=== PATIENT | female | born 1955 | race African-American/Black ===

== ENCOUNTER 2023-03-11 17:07 | Inpatient (IN) | payer OTHER, SELFPAY ==
[~2023-03-11] VITALS: Ht 162.6 cm; Wt 77.3 kg
[2023-03-11] MEDS ORDERED: FUROSEMIDE 40MG/4ML VIAL IV ONE (17:45)
[2023-03-11] MEDS ORDERED: APIXABAN 5 MG TAB (ELIQUIS) PO ONE (17:45)
[2023-03-11] MEDS ORDERED: METOPROLOL TART 50 MG TAB PO ONE (17:45)
[2023-03-11 18:04] LABS: BASO % 0.5 % (0.0-1.0); EOS # 0.1 10^3/uL (0.0-0.5); EOS % 1.3 % (0.0-3.0); HEMATOCRIT 34.9 % (36.0-47.0); HEMOGLOBIN 10.8 g/dl (12.0-15.5); LYMPH # 1.8 10^3/uL (1.5-5.0); MEAN CORPUSCULAR HEMOGLOBIN 26.5 pg (27.0-33.0); MEAN CORPUSCULAR HGB CONC 30.9 g/dl (32.0-36.5); MEAN CORPUSCULAR VOLUME 85.7 fl (80.0-96.0); MONO # 0.6 10^3/uL (0.0-0.8); MONO % 7.1 % (2.0-8.0); NEUTROPHILS # 5.3 10^3/uL (1.5-8.5); NEUTROPHILS % 67.7 % (36.0-66.0); PLATELET COUNT, AUTOMATED 166 10^3/uL (150-450); RED BLOOD COUNT 4.07 10^6/uL (4.00-5.40); WHITE BLOOD COUNT 7.8 10^3/uL (4.0-10.0)
[2023-03-11 18:27] LABS: BLOOD UREA NITROGEN 10 MG/DL (9-23); CALCIUM LEVEL 8.6 MG/DL (8.3-10.6); CARBON DIOXIDE LEVEL 25 MMOL/L (20-31); CHLORIDE LEVEL 107 MMOL/L (98-107); CREATININE FOR GFR 0.66 MG/DL (0.55-1.30); GLOMERULAR FILTRATION RATE > 60.0 (>45); GLUCOSE, FASTING 243 MG/DL (74-106); POTASSIUM SERUM 3.9 MMOL/L (3.5-5.1); SODIUM LEVEL 141 MMOL/L (136-145)
[2023-03-11] MEDS ORDERED: MED REC IN PROGRESS XX SCH (19:40)
[2023-03-11] MEDS ORDERED: gliclazide PO (20:03)
[2023-03-11] MEDS ORDERED: ENAL1TAB48 PO (20:03)
[2023-03-11] MEDS ORDERED: PRAD75CA5 PO (20:03)
[2023-03-11] MEDS ORDERED: FURO40TA2 PO (20:03)
[2023-03-11] MEDS ORDERED: DIGO0.123 PO (20:03)
[2023-03-11] MEDS ORDERED: CARV12.5 PO (20:03)
[2023-03-11] MEDS ORDERED: med rec comment (20:04)
[2023-03-11] MEDS ORDERED: MOM 30ML SUSPENSION UDC PO PRN (20:05)
[2023-03-11] MEDS ORDERED: GLUCAGON INJ 1MG VIAL SC PRN (20:05)
[2023-03-11] MEDS ORDERED: MAALOX 30 ML SUSP *UDC PO PRN (20:05)
[2023-03-11] MEDS ORDERED: DEXTROSE 50% 50ML SYRINGE IV PRN (20:05)
[2023-03-11] MEDS ORDERED: GLUCOSE 4GM CHEW TABLET PO PRN (20:05)
[2023-03-11] MEDS ORDERED: ACETAMINOPHEN TAB 650MG DOSE (2X325MG) PO PRN (20:05)
[2023-03-11] MEDS: INSULIN LISPRO (NovoLOG) PER UNIT SC SCH (21:00)
[2023-03-11] MEDS ORDERED: CARVedilol 12.5 MG TAB PO SCH (21:00)
[2023-03-11] MEDS ORDERED: HOME MED LIST COMPLETE! XX SCH (21:05)
[2023-03-11 22:47] VITALS: BP 175/81; TEMP 98.1; O2SAT 97
[2023-03-11 23:18] VITALS: BP 146/69; O2SAT 98
[2023-03-11] MEDS: ENALAPRIL MALEATE 5 MG TAB PO SCH (23:18)
[2023-03-12] VITALS: BP 160/79; TEMP 98; O2SAT 98
[2023-03-12 04:00] VITALS: BP 167/92; TEMP 97.5; O2SAT 100
[2023-03-12 04:27] LABS: HEMATOCRIT 34.5 % (36.0-47.0); HEMOGLOBIN 10.5 g/dl (12.0-15.5); MEAN CORPUSCULAR HEMOGLOBIN 26.2 pg (27.0-33.0); MEAN CORPUSCULAR HGB CONC 30.4 g/dl (32.0-36.5); PLATELET COUNT, AUTOMATED 152 10^3/uL (150-450); RED BLOOD COUNT 4.01 10^6/uL (4.00-5.40); WHITE BLOOD COUNT 7.4 10^3/uL (4.0-10.0)
[2023-03-12 05:02] LABS: BLOOD UREA NITROGEN 10 MG/DL (9-23); CALCIUM LEVEL 8.7 MG/DL (8.3-10.6); CARBON DIOXIDE LEVEL 30 MMOL/L (20-31); CHLORIDE LEVEL 105 MMOL/L (98-107); CREATININE FOR GFR 0.64 MG/DL (0.55-1.30); GLOMERULAR FILTRATION RATE > 60.0 (>45); GLUCOSE, FASTING 152 MG/DL (74-106); MAGNESIUM LEVEL 1.4 MG/DL (1.8-2.4); POTASSIUM SERUM 3.1 MMOL/L (3.5-5.1); SODIUM LEVEL 143 MMOL/L (136-145); THYROID STIMULATING HORMONE 1.473 uIU/ML (0.55-4.78)
[2023-03-12 05:15] LABS: HEMOGLOBIN A1c 6.2 % (4.0-6.0)
[2023-03-12] MEDS: FUROSEMIDE 40MG/4ML VIAL IV SCH ×2 (06:31→18:33)
[2023-03-12] MEDS ORDERED: MAG SULF 1GM/100ML (MAG RUN) 1 GM in IV 1 EA IV ONE (07:00)
[2023-03-12] MEDS ORDERED: POTASSIUM CHLORIDE 10MEQ SR TABLET PO ONE (07:00)
[2023-03-12] MEDS: ENALAPRIL MALEATE 5 MG TAB PO SCH ×2 (08:37→20:17)
[2023-03-12] MEDS: APIXABAN 5 MG TAB (ELIQUIS) PO SCH ×2 (08:37→20:16)
[2023-03-12] MEDS: CARVedilol 12.5 MG TAB PO SCH ×2 (08:37→20:16)
[2023-03-12] MEDS: INSULIN LISPRO (NovoLOG) PER UNIT SC SCH ×4 (08:40→20:13)
[2023-03-12] MEDS ORDERED: DIGOXIN 0.125 MG TAB PO SCH (09:00)
[2023-03-12] MEDS ORDERED: FURO40TA2 PO (10:59)
[2023-03-12] MEDS ORDERED: ELIQ5TAB PO (10:59)
[2023-03-12] MEDS ORDERED: CARV12.5 PO (10:59)
[2023-03-12] MEDS ORDERED: DIGO0.123 PO (10:59)
[2023-03-12] MEDS ORDERED: ENAL1TAB48 PO (10:59)
[2023-03-12 11:53] VITALS: BP 133/76; TEMP 97.9; O2SAT 98
[2023-03-12 16:00] VITALS: BP 152/75; TEMP 97.4; O2SAT 97
[2023-03-12 20:12] VITALS: BP 164/80; TEMP 97.8; O2SAT 97
[2023-03-12 22:28] VITALS: BP 154/92; TEMP 97.3; O2SAT 100
[2023-03-13 02:00] VITALS: BP 151/90; TEMP 97.2; O2SAT 99
[2023-03-13 05:24] VITALS: BP 149/87; TEMP 97.3; O2SAT 99
[2023-03-13] MEDS: FUROSEMIDE 40MG/4ML VIAL IV SCH (05:32)
[2023-03-13 06:21] LABS: HEMATOCRIT 35.7 % (36.0-47.0); MEAN CORPUSCULAR HEMOGLOBIN 26.6 pg (27.0-33.0); MEAN CORPUSCULAR HGB CONC 30.8 g/dl (32.0-36.5); MEAN CORPUSCULAR VOLUME 86.2 fl (80.0-96.0); PLATELET COUNT, AUTOMATED 166 10^3/uL (150-450); RED BLOOD COUNT 4.14 10^6/uL (4.00-5.40); WHITE BLOOD COUNT 7.4 10^3/uL (4.0-10.0)
[2023-03-13 06:51] LABS: BLOOD UREA NITROGEN 15 MG/DL (9-23); CALCIUM LEVEL 9.1 MG/DL (8.3-10.6); CARBON DIOXIDE LEVEL 33 MMOL/L (20-31); CHLORIDE LEVEL 103 MMOL/L (98-107); CREATININE FOR GFR 0.69 MG/DL (0.55-1.30); GLOMERULAR FILTRATION RATE > 60.0 (>45); GLUCOSE, FASTING 136 MG/DL (74-106); MAGNESIUM LEVEL 1.6 MG/DL (1.8-2.4); POTASSIUM SERUM 3.3 MMOL/L (3.5-5.1); SODIUM LEVEL 144 MMOL/L (136-145)
[2023-03-13 07:25] VITALS: BP 123/74
[2023-03-13] MEDS: MAG SULF 1GM/100ML (MAG RUN) 1 GM in IV 1 EA IV SCH ×3 (08:30→11:02)
[2023-03-13] MEDS: APIXABAN 5 MG TAB (ELIQUIS) PO SCH (08:30)
[2023-03-13 08:31] VITALS: BP 128/75
[2023-03-13] MEDS: ENALAPRIL MALEATE 5 MG TAB PO SCH (08:31)
[2023-03-13] MEDS: POTASSIUM CHLORIDE 10MEQ SR TABLET PO SCH ×2 (08:31→08:34)
[2023-03-13] MEDS: CARVedilol 12.5 MG TAB PO SCH (08:31)
[2023-03-13] MEDS: INSULIN LISPRO (NovoLOG) PER UNIT SC SCH ×2 (08:32→13:11)
[2023-03-13] MEDS ORDERED: DIGOXIN 0.25 MG TAB PO SCH (09:00)
[2023-03-13] MEDS ORDERED: DIGOXIN 0.125 MG TAB PO ONE (09:40)
[2023-03-13 10:00] VITALS: BP 117/69; TEMP 97.3; O2SAT 99
[2023-03-13] MEDS ORDERED: DIGO0.253 PO (11:16)
[2023-03-13] MEDS ORDERED: CARV25TA PO (11:22)
[2023-03-13 14:00] VITALS: BP 118/68; TEMP 97.3; O2SAT 100
[2023-03-13] MEDS ORDERED: FUROSEMIDE 40MG/4ML VIAL IV SCH (18:00)
[2023-03-14] MEDS ORDERED: DIGOXIN 0.25 MG TAB PO SCH (09:00)
== END 2023-03-13 17:13 | disposition home or self-care (01) | DRG 194 ==
LOC: M ED 17:07 → EDBD 17:07 → M ED INP 20:03 → M ICU 22:35 → M MSPAV 03-12 22:26
PROVIDERS: ADMIT Internal Medicine; ATTEND Student in an Organized Health Care Education/Training Program
PROC: B246ZZZ Ultrasonography of Right and Left Heart (ICD-10-PCS; principal; 2023-03-12)
DX: I11.0 Hypertensive heart disease with heart failure (principal); E11.65 Type 2 diabetes mellitus with hyperglycemia; I48.20 Chronic atrial fibrillation, unspecified; E83.42 Hypomagnesemia; D64.9 Anemia, unspecified; Z86.73 Personal history of transient ischemic attack (TIA), and cerebral infarction without residual deficits; Z79.899 Other long term (current) drug therapy; Z20.822 Contact with and (suspected) exposure to COVID-19; Z91.013 Allergy to seafood; E87.6 Hypokalemia; I16.1 Hypertensive emergency; I50.9 Heart failure, unspecified

== ENCOUNTER 2023-04-26 17:36 | Emergency (ER) | payer SELFPAY ==
[~2023-04-26] VITALS: Ht 165.1 cm; Wt 81.0 kg
[~2023-04-26 17:36] MED LIST: CARV12.5 PO; CARV25TA PO; DIGO0.123 PO; DIGO0.253 PO; ELIQ5TAB PO; ENAL1TAB48 PO; FURO40TA2 PO; PRAD75CA5 PO; gliclazide PO; med rec comment
[2023-04-26 18:29] LABS: BASO % 0.3 % (0.0-1.0); EOS # 0.1 10^3/uL (0.0-0.5); EOS % 1.6 % (0.0-3.0); HEMATOCRIT 39.8 % (36.0-47.0); HEMOGLOBIN 12.4 g/dl (12.0-15.5); LYMPH # 2.4 10^3/uL (1.5-5.0); LYMPH % 27.3 % (24.0-44.0); MEAN CORPUSCULAR HEMOGLOBIN 25.6 pg (27.0-33.0); MEAN CORPUSCULAR HGB CONC 31.2 g/dl (32.0-36.5); MEAN CORPUSCULAR VOLUME 82.2 fl (80.0-96.0); MONO # 0.6 10^3/uL (0.0-0.8); MONO % 7.3 % (2.0-8.0); NEUTROPHILS # 5.4 10^3/uL (1.5-8.5); NEUTROPHILS % 63.2 % (36.0-66.0); PLATELET COUNT, AUTOMATED 243 10^3/uL (150-450); RED BLOOD COUNT 4.84 10^6/uL (4.00-5.40); WHITE BLOOD COUNT 8.6 10^3/uL (4.0-10.0)
[2023-04-26 18:44] LABS: INR 1.16; PROTHROMBIN TIME 14.5 SECONDS (12.5-14.5)
[2023-04-26] MEDS ORDERED: ISOVUE-370 76% 100ML VIAL As Ordered ONE (18:44)
[2023-04-26 18:45] LABS: PARTIAL THROMBOPLASTIN TIME 27.4 SECONDS (24.8-34.2)
[2023-04-26 18:47] LABS: LIPASE 43 U/L (12-53)
[2023-04-26 18:50] LABS: ALBUMIN 3.7 G/DL (3.2-5.2); ALKALINE PHOSPHATASE 113 U/L (46-116); ALT/SGPT 21 U/L (7.0-40); AST/SGOT 47 U/L (<34); BILIRUBIN,DIRECT 0.2 MG/DL (<0.4); BILIRUBIN,TOTAL 0.5 MG/DL (0.3-1.2); BLOOD UREA NITROGEN 10 MG/DL (9-23); CALCIUM LEVEL 8.9 MG/DL (8.3-10.6); CARBON DIOXIDE LEVEL 27 MMOL/L (20-31); CHLORIDE LEVEL 103 MMOL/L (98-107); CREATININE FOR GFR 0.64 MG/DL (0.55-1.30); DIGOXIN LEVEL < 0.1 NG/ML (0.8-2.0); GLOMERULAR FILTRATION RATE > 60.0 (>45); GLUCOSE, FASTING 186 MG/DL (74-106); POTASSIUM SERUM 4.3 MMOL/L (3.5-5.1); SODIUM LEVEL 139 MMOL/L (136-145); TOTAL PROTEIN 7.7 G/DL (5.7-8.2)
[2023-04-26 18:51] LABS: CPK CREATINE PHOSPHOKINASE 188 U/L (34-145)
[2023-04-26 18:54] LABS: CK-MB VALUE MASS 7.1 NG/ML (<3.6); MB/CK RELATIVE INDEX 3.77 (< OR =4)
[2023-04-26 18:57] LABS: THYROID STIMULATING HORMONE 1.744 uIU/ML (0.55-4.78)
[2023-04-26 18:58] LABS: FREE T4 0.94 NG/DL (0.89-1.76)
[2023-04-26] MEDS ORDERED: NITROGLYCERIN 2% OINT 1 GM *U/D* PKT TOP ONE (19:10)
[2023-04-26] MEDS ORDERED: fentaNYL 100 MCG/2 ML INJECTION IV ONE (19:10)
[2023-04-26] MEDS ORDERED: ASPIRIN 81MG CHEW TABLET PO ONE (19:10)
[2023-04-26 19:35] VITALS: BP 182/83
[2023-04-26 19:38] LABS: RSV AMPLIFICATION NEGATIVE (NEGATIVE)
[2023-04-26 20:24] LABS: CK-MB VALUE MASS 5.3 NG/ML (<3.6)
[2023-04-26 20:26] LABS: MB/CK RELATIVE INDEX 3.29 (< OR =4)
[2023-04-26] MEDS ORDERED: HEPARIN DRIP 25,000 UNITS in IV 1 EA IV SCH (21:25)
[2023-04-26] MEDS ORDERED: NITROGLYCERIN/D5W 100MCG/ML 25 MG in IV 1 EA IV SCH (21:25)
[2023-04-26 22:50] LABS: MB/CK RELATIVE INDEX 3.35 (< OR =4)
[2023-04-26 23:29] VITALS: TEMP 98.1
[2023-04-27 00:35] VITALS: O2SAT 97
[2023-04-27 00:40] VITALS: BP 129/76
== END 2023-04-27 00:57 | disposition short-term general hospital (02) ==
LOC: M ED 17:36
DX: I21.4 Non-ST elevation (NSTEMI) myocardial infarction (principal); I16.0 Hypertensive urgency; I48.0 Paroxysmal atrial fibrillation; E11.9 Type 2 diabetes mellitus without complications; I10 Essential (primary) hypertension; Z86.79 Personal history of other diseases of the circulatory system; Z86.73 Personal history of transient ischemic attack (TIA), and cerebral infarction without residual deficits; Z91.013 Allergy to seafood
CPT/HCPCS: 71045; 71275; 80047; 80048; 80076; 80162; 82550; 82553; 83690; 83880; 84439; 84443; 84484; 85025; 85610; 85730; 87631; 93005; 93041; 94760; 96365; 96375; 99285; J3010; Q9967